=== PATIENT | male | born 1970 | race Caucasian/White ===

== ENCOUNTER 2016-09-27 18:21 | Inpatient (IN) | payer BC ==
[~2016-09-27] VITALS: Ht 182.9 cm; Wt 96.3 kg
[~2016-09-27 18:21] MED LIST: ATI1 PO; FOL1 PO; HYDROXYZINE50 M1 PO; MIRTAZAPINE15 M2 PO; NEU300 PO; REM15 PO; THI100 PO
--- NOTE | 2016-09-27 19:15 | NUR ---
RECEIVED 46 YO MALE, WALK-IN. PT C/O "DRINKING TOO MUCH" X 4 DAYS RELATED TO RELATIONSHIP PROBLEMS. PT IS AAOX4, SMELLS OF ETOH, IN NAD, NO SOB, RR EVEN AND UNLABORED. PENDING MSE
[2016-09-27 19:36] LABS: BASOPHIL % 0.7 % (0-2); PLATELET COUNT 247 x10^3mcL (130-400)
[2016-09-27 19:39] LABS: RED CELL DISTRIBUTION WIDTH 14.9 % (11.5-14.5)
[2016-09-27 19:55] LABS: CALCIUM 8.1 mg/dL (8.5-10.1); CHLORIDE SERUM 104 mmol/L (98-107); CREATININE SERUM 0.9 mg/dL (0.7-1.3); GFR1 > 60 mL/min; GLUCOSE SERUM 102 mg/dL (74-106); POTASSIUM SERUM 3.8 mmol/L (3.5-5.1); SODIUM SERUM 142 mmol/L (136-145)
--- NOTE | 2016-09-27 20:00 | NUR ---
[facility] SWAB OBTAINED AND SENT TO LAB
[2016-09-27 20:02] LABS: ALBUMIN 3.7 g/dL (3.4-5.0); ALKALINE PHOSPHATASE 119 U/L (46-116); ALT/SGPT 37 U/L (16-63); AST/SGOT 41 U/L (15-37); BILIRUBIN TOTAL 0.61 mg/dL (0.20-1.00); TOTAL PROTEIN, SERUM 6.9 g/dL (6.4-8.2); URIC ACID 6.4 mg/dL (3.5-7.2)
[2016-09-27 20:04] LABS: CHOLESTEROL 211 mg/dL (<200); HDL CHOLESTEROL 85 mg/dL (40-60)
[2016-09-27 20:42] LABS: CHOLESTEROL/HDL RATIO 2.4
[2016-09-27 20:45] LABS: FREE T4 0.76 ng/dL (0.76-1.46); FREE THYROXINE INDEX 2.1 ug/dL (1.4-4.5); T4(THYROXINE) 5.8 ug/dL (4.7-13.3)
--- NOTE | 2016-09-27 20:50 | NUR ---
GUARDED PT TRANSPORTED ON MONITOR VIA GURNEY BY EMT LEBRON AND RN HAILEE. PT IS AAOX4, IN NAD, NO SOB.
[2016-09-27 21:09] VITALS: BP 128/78
--- NOTE | 2016-09-27 21:19 | NUR ---
RECEIVED PATIENT FROM ED VIA FAMILY KUMAR AT BEDSIDE, ORIENTED PATIENT TO ROOM AND SURROUNDINGS, BED IN LOW POSITION, BED RAILS UP X 2, CALL LIGHT WITHIN REACH, WILL ENDORSE CARE TO HERMANN FRIED.
[2016-09-27 21:21] VITALS: BP 128/78
--- NOTE | 2016-09-27 21:22 | NUR ---
RECEIVED PT FROM RESOURCE NURSE CHARLY. NO ACUTE DISTRESS. ORIENTED PT TO ROOM. WILL CONTINUE TO MONITOR.
--- NOTE | 2016-09-27 21:42 | NUR ---
PT LEFT BY WHEELCHAIR FOR CT.
--- NOTE | 2016-09-27 22:02 | NUR ---
PT BACK FROM CT. WILL CONTINUE TO MONITOR.
--- NOTE | 2016-09-28 01:22 | NUR ---
PT CURRENTLY RESTING IN BED, NO ACUTE DISTRESS. WILL CONTINUE TO MONITOR.
[2016-09-28] MEDS ORDERED: MIRTAZAPINE15 M2 PO (02:10)
[2016-09-28 05:32] VITALS: BP 114/72
--- NOTE | 2016-09-28 06:01 | NUR ---
HR 108, MORPHINE INCREASED BY 1MG/HR PER ORDERS. WILL CONTINUE TO MONITOR.
--- NOTE | 2016-09-28 06:22 | NUR ---
PT SLEPT PERIODICALLY THROUGHOUT NIGHT. NO ACUTE DISTRESS. ALL NEEDS MET AND ATTENDED TO. NO SIGNIFICANT CHANGES. IV PATENT AND INTACT. BED IN LOWEST POSITION, SIDE RAILS UP X2, SCDS IN PLACE, CALL LIGHT WITHIN REACH. WILL ENDORSE CARE TO ONCOMING NURSE.
[2016-09-28 06:28] LABS: BASOPHIL % 0.9 % (0-2); PLATELET COUNT 234 x10^3mcL (130-400)
[2016-09-28 06:34] LABS: CALCIUM 7.8 mg/dL (8.5-10.1); CARBON DIOXIDE 25.3 mmol/L (21-32); CHLORIDE SERUM 105 mmol/L (98-107); CREATININE SERUM 0.9 mg/dL (0.7-1.3); GFR1 > 60 mL/min; GLUCOSE SERUM 87 mg/dL (74-106); MAGNESIUM 1.9 mg/dL (1.8-2.4); PHOSPHOROUS 3.4 mg/dL (2.5-4.9); SODIUM SERUM 141 mmol/L (136-145)
[2016-09-28 06:35] LABS: RED CELL DISTRIBUTION WIDTH 15.3 % (11.5-14.5)
--- NOTE | 2016-09-28 07:25 | NUR ---
RESTING IN BED, AROUSABLE TO LIGHT NOISE, ABLE TO VERBALIZE NEEDS WITH CLEAR AND COHERENT SPEECH, DENIES DISCOMFORT AT THIS TIME, SYM CHEST EXPANSION, UNLABORED BREATHING, ON TELE #14 SR ON MONITOR, DENIES ANY HEART RELATED PAIN OR DISCOMFORT, ACTIVE BOWEL SOUNDS X4 QUADS, PALPABLE PERIPHERAL PULSES, IV AT LAC INFUSING NS AT 130ML/HR, SEIZURE PRECAUTIONS IN PLACE, CALL LIGHT WITHIN REACH, WILL CONTINUE TO PROVIDE CARE.
[2016-09-28 09:58] VITALS: BP 132/78
--- NOTE | 2016-09-28 10:15 | NUR ---
C/O FEELING ANXIOUS, REQUESTING MED TO HELP DECREASE ANXIETY, WILL ADMIN ORDERED.
[2016-09-28] MEDS ORDERED: ATIVAN1 MG PO (10:23)
[2016-09-28] MEDS ORDERED: HYDROXYZINE50 M1 PO (10:29)
[2016-09-28 10:30] LABS: T3 TOTAL 0.76 ng/mL
[2016-09-28 13:18] VITALS: BP 132/78
[2016-09-28 14:01] VITALS: BP 133/79
--- NOTE | 2016-09-28 15:23 | NUR ---
RESTING IN BED, DENIES DISCOMFORT, CALL LIGHT WITHIN REACH.
--- NOTE | 2016-09-28 18:20 | NUR ---
DR CLEMENTE HAS COMPLETED E-SCRIPTS, ALL WERE RECEIVED BY PHARM, CONFIRMED BY PATIENT. PATIENT TO DISCHARGED HOME, REVIEWED DISCHARGE INSTRUCTIONS WITH PATIENT, INCLUDING F/U APPOINTMENT WITH PCP ON 09/30/16 AND F/U APPT WITH DR VARGAS, PATIENT VERBALIZED UNDERSTANDING OF DISCHARGE INSTRUCITONS. IV D/C'D, CATH TIP INTACT, NO BLEEDING NOTED, COVERED WITH BANDAID. TELE MONITOR D/C'D, PATIENT ASSISTED DOWNSTAIRS BY FAN BALANCER.
== END 2016-09-28 18:19 | disposition home or self-care (01) | DRG 917 ==
LOC: ED 18:21 → DU 19:55
PROVIDERS: Emergency Medicine; ADMIT Family Medicine
DX: T51.0X1A Toxic effect of ethanol, accidental (unintentional), initial encounter (principal); G92 Toxic encephalopathy; N17.0 Acute kidney failure with tubular necrosis; F10.229 Alcohol dependence with intoxication, unspecified; F32.9 Major depressive disorder, single episode, unspecified; F41.1 Generalized anxiety disorder; K70.0 Alcoholic fatty liver; E78.5 Hyperlipidemia, unspecified; Z68.28 Body mass index [BMI] 28.0-28.9, adult; Y90.8 Blood alcohol level of 240 mg/100 ml or more; Y92.009 Unspecified place in unspecified non-institutional (private) residence as the place of occurrence of the external cause
CPT/HCPCS: 80307; 83880; 84439; G0480; J2060; J7030; Q0092

== ENCOUNTER 2016-10-26 20:31 | Emergency (ER) | payer BC ==
[~2016-10-26] VITALS: Ht 185.4 cm; Wt 113.4 kg
[~2016-10-26 20:31] MED LIST changes: +ATIVAN1 MG PO
[2016-10-26 20:46] VITALS: BP 12/80
== END 2016-10-26 21:10 | disposition other institution (70) ==
LOC: ED 20:31
DX: F10.129 Alcohol abuse with intoxication, unspecified (principal)
CPT/HCPCS: Q0162

== ENCOUNTER 2016-10-26 20:31 | Emergency (ER) | payer OTHER | END 2016-10-26 21:10 | disposition other institution (70) | LOC: ED 20:31 | DX: Z02.89 Encounter for other administrative examinations (principal) ==

== ENCOUNTER 2016-12-12 10:06 | Emergency (ER) | payer BC ==
[~2016-12-12] VITALS: Ht 180.3 cm; Wt 90.7 kg
[~2016-12-12 10:06] MED LIST changes: +FIORICET1 CAP PO; +LEXAPRO10 MG PO; +LORAZEPAM1 MG PO; +NATURE'S BLEND F1 MG PO; +THIAMINE HCL100 MG PO
[2016-12-12 11:03] LABS: BASOPHIL % 1.5 % (0-2); PLATELET COUNT 328 x10^3mcL (130-400)
[2016-12-12 11:17] LABS: CALCIUM 8.3 mg/dL (8.5-10.1); CHLORIDE SERUM 101 mmol/L (98-107); GFR1 > 60 mL/min; GLUCOSE SERUM 84 mg/dL (74-106); POTASSIUM SERUM 3.8 mmol/L (3.5-5.1); SODIUM SERUM 139 mmol/L (136-145)
[2016-12-12 11:30] LABS: ALBUMIN 4.2 g/dL (3.4-5.0); ALKALINE PHOSPHATASE 124 U/L (46-116); ALT/SGPT 57 U/L (16-63); AST/SGOT 69 U/L (15-37); BILIRUBIN TOTAL 0.56 mg/dL (0.20-1.00); LIPASE 244 IU/L (73-393); MAGNESIUM 1.9 mg/dL (1.8-2.4); TOTAL PROTEIN, SERUM 7.7 g/dL (6.4-8.2)
[2016-12-12 12:06] LABS: microscopic required? NO
[2016-12-12 12:20] LABS: urine erythrocyte NEGATIVE (NEGATIVE)
[2016-12-12 12:53] LABS: AMPHETAMINE QUAL UR NONE DETECTED (NEG <=1000)
[2016-12-12 13:56] VITALS: BP 126/81
[2016-12-12 14:21] LABS: FREE T4 0.86 ng/dL (0.76-1.46); FREE THYROXINE INDEX 1.9 ug/dL (1.4-4.5); T4(THYROXINE) 5.4 ug/dL (4.7-13.3)
[2016-12-12 14:22] LABS: T3 TOTAL 0.67 ng/mL
[2016-12-12 14:43] LABS: PHOSPHOROUS 3.7 mg/dL (2.5-4.9)
[2016-12-12 14:48] LABS: CHOLESTEROL/HDL RATIO 2.5
== END 2016-12-12 15:15 | disposition left against medical advice (07) ==
LOC: ED 10:06 → DU 13:29 → ED 13:29
PROVIDERS: Emergency Medicine; Family Medicine
DX: F10.129 Alcohol abuse with intoxication, unspecified (principal); G92 Toxic encephalopathy; I10 Essential (primary) hypertension
CPT/HCPCS: 83880; 84439; G0480; J3411; J3475; J3490; J7030; Q0092

== ENCOUNTER 2019-06-14 11:29 | Emergency (ER) | payer OTHER ==
[~2019-06-14] VITALS: Ht 182.9 cm; Wt 85.3 kg
[2019-06-14 11:32] VITALS: Ht 182.9 cm; Wt 85.3 kg
[2019-06-14 13:09] VITALS: BP 117/73
== END 2019-06-14 13:09 | disposition home or self-care (01) ==
LOC: ED 11:29
DX: S01.01XA Laceration without foreign body of scalp, initial encounter (principal); S01.81XA Laceration without foreign body of other part of head, initial encounter; F10.239 Alcohol dependence with withdrawal, unspecified; I10 Essential (primary) hypertension; W18.39XA Other fall on same level, initial encounter; Y93.89 Activity, other specified; Y92.89 Other specified places as the place of occurrence of the external cause; Y99.8 Other external cause status; Y90.8 Blood alcohol level of 240 mg/100 ml or more